=== PATIENT | male | born 1945 | race Caucasian/White ===

== ENCOUNTER 2017-12-17 10:45 | Outpatient (RCR) | payer MEDICARE, BC | END 2017-12-30 | disposition home or self-care (01) | LOC: PTY 10:45 | DX: S93.401D Sprain of unspecified ligament of right ankle, subsequent encounter (principal); M25.371 Other instability, right ankle; M76.71 Peroneal tendinitis, right leg; M67.01 Short Achilles tendon (acquired), right ankle | CPT/HCPCS: 97110; G8978; G8979 ==

== ENCOUNTER 2018-03-29 10:00 | Outpatient (RCR) | payer MEDICARE, BC | END 2018-04-01 | disposition home or self-care (01) | LOC: PTY 10:00 | DX: M72.2 Plantar fascial fibromatosis (principal); M67.00 Short Achilles tendon (acquired), unspecified ankle | CPT/HCPCS: 97110; 97140; 97161; G8978; G8979 ==